=== PATIENT | male | born 1990 | race Hispanic/Latino ===

== ENCOUNTER 2025-06-11 19:25 | Emergency (ER) | payer SELFPAY ==
[~2025-06-11] VITALS: Ht 172.7 cm; Wt 79.0 kg
--- NOTE | 2025-06-11 19:34 | NUR ---
UA CUP PROVIDED
[2025-06-11 19:42] VITALS: BP 138/71; PULSE 100; RESP 20; TEMP 97.9; O2SAT 100
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
[2025-06-11 20:06] LABS: IMMATURE GRANULOCYTE ABSOLUTE 0.02 K/uL (0-1); NUCLEATED RED BLOOD CELLS 0.0 % (0.0-0.19); PLATELET COUNT (AUTO) 320 K/uL (130-400); RED BLOOD CELL COUNT(AUTO) 5.15 MIL/uL (4.50-6.20); RED CELL DISTRIBUTION WIDTH 13.1 % (11.0-15.5); WHITE BLOOD COUNT (AUTO) 8.9 K/uL (4.8-10.8)
[2025-06-11 20:11] LABS: AMPHET/METH SCREEN,URINE NEGATIVE (NEGATIVE); BARBITURATE SCREEN, URINE NEGATIVE (NEGATIVE); CANNABINOID SCREEN,URINE NEGATIVE (NEGATIVE); COCAINE SCREEN,URINE POSITIVE (NEGATIVE)
[2025-06-11 20:12] LABS: CREATININE 0.7 mg/dL (0.5-1.3); GLOMERULAR FILTR. RATE CALC 122 mL/min (>90); GLUCOSE,RANDOM 111 mg/dL (70-105); SODIUM SERUM 139 mmol/L (136-145); UREA NITROGEN, BLOOD 16 mg/dL (7-18)
[2025-06-11 20:14] LABS: ALCOHOL, BLOOD < 3 mg/dL (0-10)
--- NOTE | 2025-06-11 20:43 | NUR ---
PT WAS EXPLAINED RESULTS OF HIS STUDIES BY DR. PEREZ. SOON WAS DONE, PT LEFT. PT LEFT WITHOUT DISCAHRGE VITALS OR INSTRUCTIONS. PT STATES HE IS BEING DISCHARGED HE NEEDS TO LEAVE TO MANAGER BACKGROUND HIS CHILDREN FROM [facility].
== END 2025-06-11 20:43 | disposition home or self-care (01) ==
LOC: EDH 19:25
DX: R42 Dizziness and giddiness (principal); F14.10 Cocaine abuse, uncomplicated; F17.210 Nicotine dependence, cigarettes, uncomplicated; F20.9 Schizophrenia, unspecified; F31.9 Bipolar disorder, unspecified; Z79.899 Other long term (current) drug therapy
CPT/HCPCS: 36415; 80048; 80305; 85025; 99283